=== PATIENT | male | born 1965 | race Two or more races ===

== ENCOUNTER 2021-01-05 08:32 | Inpatient (IN) | payer OTHER ==
[~2021-01-05] VITALS: Ht 175.3 cm; Wt 72.6 kg
[~2021-01-05 08:32] MED LIST: CIPRO500 MG PO; DOXYCYCLINE HY100 M2 PO; LISINOPRIL5 MG PO; Neurontin PO; SEPTRA DS TABLE1 TAB PO
[2021-01-14] MEDS ORDERED: AMOX-CLAV 875-1 EAC1 PO (07:59)
[2021-01-14] MEDS ORDERED: INTESTINEX680 M1 PO (07:59)
== END 2021-01-14 08:46 | disposition home or self-care (01) | DRG 300 ==
LOC: ER 08:32 → MEDI 17:19
PROVIDERS: ADMIT Internal Medicine; ATTEND Internal Medicine
PROC: 0HDLXZZ Extraction of Left Lower Leg Skin, External Approach (ICD-10-PCS; principal; 2021-01-06)
PROC: 0HDKXZZ Extraction of Right Lower Leg Skin, External Approach (ICD-10-PCS; 2021-01-06)
DX: I87.333 Chronic venous hypertension (idiopathic) with ulcer and inflammation of bilateral lower extremity (principal); L97.818 Non-pressure chronic ulcer of other part of right lower leg with other specified severity; L97.828 Non-pressure chronic ulcer of other part of left lower leg with other specified severity; B20 Human immunodeficiency virus [HIV] disease; B15.9 Hepatitis A without hepatic coma; B19.10 Unspecified viral hepatitis B without hepatic coma; B19.20 Unspecified viral hepatitis C without hepatic coma; I10 Essential (primary) hypertension; E86.0 Dehydration; F17.200 Nicotine dependence, unspecified, uncomplicated; Z20.822 Contact with and (suspected) exposure to COVID-19